=== PATIENT | male | born 2000 | race American Indian/Alaskan Native ===

== ENCOUNTER 2020-01-14 14:17 | Emergency (ER) | payer MEDICAID ==
[2020-01-14 15:36] VITALS: BP 114/78
--- NOTE | 2020-01-14 15:39 | Emergency Department Report ---
ED Laceration HPI - HPI Chief Complaint: Wound/Laceration Stated Complaint: SWOLLEN EYE Time Seen by Provider: 01/14/20 15:34 Occurred When: Today Severity: mild Tetanus Status: Up to Date Laceration Symptoms: Yes Pain, No Foreign Body Sensation, No Numbness, No Weakness Other History: This is a 19-year-old male nontoxic well in appearnce with no acute signs of distress presents with the complaint of right eyebrow lac that occurred 2 days ago. Patient denies any other complaints. Denies any LOC, fever, chills, headache, stiff neck, nausea, vomiting, chest pain, or SOB. Denies any allergies or PMH. Stated is UTD with tetanus of 3 years ago. ED Review of Systems ROS: Stated complaint: SWOLLEN EYE Other details as noted in HPI Constitutional: denies: chills, fever Eyes: denies: eye pain, eye discharge, vision change ENT: denies: ear pain, throat pain Respiratory: denies: cough, shortness of breath, wheezing Cardiovascular: denies: chest pain, palpitations Endocrine: no symptoms reported Gastrointestinal: denies: abdominal pain, nausea, diarrhea Genitourinary: denies: urgency, dysuria Musculoskeletal: denies: back pain, joint swelling, arthralgia Skin: denies: rash, lesions Neurological: denies: headache, weakness, paresthesias Psychiatric: denies: anxiety, depression Hematological/Lymphatic: denies: easy bleeding, easy bruising ED Past Medical Hx - Past Medical History Previous Medical History?: No - Surgical History Past Surgical History?: No - Medications Home Medications: Home Medications Medication Instructions Recorded Confirmed Last Taken Type Clindamycin [Clindamycin CAP] 300 mg PO Q8H #21 cap 01/14/20 Unknown Rx Laceration Physical Exam - Exam General: Vital signs noted. No distress. Alert and acting appropriately. Full Body Front + Back: 1 - 2 cm lac that is hard with redness Laceration Exam: Yes Normal Distal CMS, No Foreign Body, No Exposed Tendon, Vessel, or Nerve, No Tendon Injury ED Course Vital Signs 01/14/20 15:34 Temperature 98.3 F Pulse Rate 85 Respiratory 18 Rate Blood Pressure 114/78 O2 Sat by Pulse 98 Oximetry - Reevaluation(s) Reevaluation #1: 01/14/20 15:38 Patient is speaking in full sentences with no signs of distress noted. ED Medical Decision Making - Medical Decision Making This is a 19-year-old male that presents with cellulitis. Patient is stable and was examined by me. Due to lac being more then 2 days, lac closure is not recommened with also infectoin. Patient will be discharged with Clinda. Patient was instructed to Follow-up with a primary care doctor in 3-5 days or if symptoms worsen and continue return to emergency room as soon as possible. At time of discharge, the patient does not seem toxic or ill in appearance. No acute signs of distress noted. Patient agrees to discharge treatment plan of care. No further questions noted by the patient. Critical care attestation.: If time is entered above; I have spent that time in minutes in the direct care of this critically ill patient, excluding procedure time. ED Disposition Clinical Impression: Cellulitis Qualifiers: Site of cellulitis: face Qualified Code(s): L03.211 - Cellulitis of face Disposition: DC-01 TO HOME OR SELFCARE Is pt being admited?: No Does the pt Need Aspirin: No Condition: Stable Instructions: Cellulitis (ED) Additional Instructions: Follow-up with a primary care doctor in 3-5 days or if symptoms worsen and con tinue return to emergency room as soon as possible. Prescriptions: Clindamycin [Clindamycin CAP] 300 mg PO Q8H #21 cap Referrals: GEO MENCHACA MD [Referring] - 3-5 Days CHASIDY DANIELSON MD [Staff Physician] - 3-5 Days
== END 2020-01-14 16:00 | disposition home or self-care (01) ==
LOC: ED 14:17
DX: L03.211 Cellulitis of face (principal); Z79.2 Long term (current) use of antibiotics
CPT/HCPCS: 99282